=== PATIENT | male | born 1980 | race Caucasian/White ===

== ENCOUNTER 2023-09-29 15:33 | Emergency (ER) | payer MEDICAID ==
[~2023-09-29] VITALS: Ht 172.7 cm; Wt 90.4 kg
[2023-09-29 15:46] VITALS: BP 114/75; PULSE 84; RESP 18; TEMP 98.4; O2SAT 95
[2023-09-29] MEDS ORDERED: NAPR-337 PO (17:33)
== END 2023-09-29 17:47 | disposition home or self-care (01) ==
LOC: MED 15:33
DX: S93.601A Unspecified sprain of right foot, initial encounter (principal); Z79.1 Long term (current) use of non-steroidal anti-inflammatories (NSAID); Z87.81 Personal history of (healed) traumatic fracture; Z98.890 Other specified postprocedural states; X58.XXXA Exposure to other specified factors, initial encounter; Y93.89 Activity, other specified; Y92.89 Other specified places as the place of occurrence of the external cause; Y99.8 Other external cause status
CPT/HCPCS: 99282